=== PATIENT | male | born 1995 | race Caucasian/White ===

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

== ENCOUNTER 2018-11-25 16:55 | Emergency (ER) | payer OTHER ==
[2018-11-25] MEDS ORDERED: DEXAMETHASONE 10 MG/ML VIAL IVP ONE (17:16)
[2018-11-25] MEDS ORDERED: NS 1,000 ML IV ONE ×2 (17:16→18:05)
[2018-11-25] MEDS ORDERED: KETOROLAC 30 MG/1 ML SDV IVP ONE (17:17)
--- NOTE | 2018-11-25 18:06 | EDPHY ---
H & P Stated Complaint: Dx with ST today,took 1 dose Penvk throat feels swollen Time Seen by Provider: 11/25/18 17:07 HPI/ROS: 23-year-old male presents complaining of sore throat and throat swelling. He was diagnosed with strep throat today and started on penicillin VK after taking a nap he woke up and felt like his throat may be more more swollen with difficulty breathing and was concerned he might be having allergic reaction to the penicillin. Review of systems As per HPI General positive fever positive chills no weakness HEENT no eye pain no eye discharge. No eye redness, positive sore throat Respiratory no cough, no shortness of breath Cardiac no chest pain, no peripheral edema GI no abdominal pain, no diarrhea, no constipation, no nausea, no vomiting no flank pain, no hematuria, no dysuria Musculoskeletal no myalgias, no joint pain Heme no easy bruising, no easy bleeding Endo no polyuria, no polydipsia Skin no rashes, no pruritus Neuro no syncope, no dizziness, no headaches Psych is no suicidal ideation, no homicidal ideation Source: Patient, Family Exam Limitations: No limitations - Personal History Current Tetanus Diphtheria and Acellular Pertussis (TDAP): Unsure - Medical/Surgical History Hx Asthma: No Hx Chronic Respiratory Disease: No Hx Diabetes: No Hx Cardiac Disease: No Hx Renal Disease: No Hx Cirrhosis: No Hx Alcoholism: No Hx HIV/AIDS: No Hx Splenectomy or Spleen Trauma: No Other PMH: med hx- none. surg-none - Family History Significant Family History: No pertinent family hx - Social History Smoking Status: Never smoked Alcohol Use: None Drug Use: None - Physical Exam Exam: 23-year-old male Alert and oriented in no acute distress nontoxic appearance, afebrile Atraumatic normocephalic Extraocular muscles intact, anicteric Neck-supple, positive anterior cervical lymphadenopathy mildly tender to palpation Oropharynx positive enlarged tonsils, erythematous, no uvular deviation, positive purulent exudate, tolerating own secretions, no trismus Lungs clear to auscultation bilaterally Heart regular rate and rhythm Abdomen normoactive bowel sounds soft nontender Extremities no cyanosis clubbing edema Skin no rash Constitutional: Initial Vital Signs Temperature (C) 38.5 C H 11/25/18 17:07 Heart Rate 112 H 11/25/18 17:07 Respiratory Rate 16 11/25/18 17:07 Blood Pressure 106/53 L 11/25/18 17:07 O2 Sat (%) 98 11/25/18 17:07 O2 Delivery Mode Room Air Allergies/Adverse Reactions: No Known Allergies Allergy (Verified 11/25/18 17:05) Home Medications: Medication Instructions Recorded Penicillin VK 11/25/18 Medical Decision Making ED Course/Re-evaluation: Patient seen and evaluated for sore throat, diagnosed with streptococcal pharyngitis earlier today. IV established, labs drawn Normal saline 2 L given Decadron 10 mg IV push Toradol 30 mg IV push CBC elevated white count 18 Lactate normal BMP no acidosis Patient continues with low-grade fever given acetaminophen 1 g p.o. Initially the family was concerned that he might be having an allergic reaction to penicillin VK because after a nap he felt like his throat was swollen. There are no signs on physical exam for allergic reaction, yes he has throat swelling but throat selling consistent with a streptococcal infection, no uvular edema, no tongue swelling no lip swelling no wheezing and no skin rash. Also there were no signs of uvular deviation-no signs of a peritonsillar abscess Impression Severe strep pharyngitis Plan Discharge home Recommend rest, acetaminophen every 4-6 hours for fever ibuprofen every 6 hr for pain Return if swelling is worsening Differential Diagnosis: Differential diagnosis considered but not limited to: Pharyngitis, streptococcal pharyngitis, mononucleosis, peritonsillar abscess, allergic reaction - Data Points Laboratory Results: 11/25/18 11/25/18 17:37 17:34 POC Sodium 139 mEq/L mEq/L (135-145) POC Potassium 4.0 mEq/L mEq/L (3.3-5.0) POC Chloride 102.0 mEq/L mEq/L (97-110) POC Total CO2 26 mEq/L mEq/L (22-31) POC BUN 13 mg/dL mg/dL (7-23) POC Creatinine 1.1 mg/dL mg/dL (0.7-1.3) POC Glucose 101 mg/dL H mg/dL (70-100) POC Lactic Acid Agustin 1.7 mmol/L mmol/L (0.7-2.1) POC Calcium 9.9 mg/dL mg/dL (8.5-10.4) Medications Given: Discontinued Medications Acetaminophen (Tylenol 160mg/5ml Oral Liquid) 1,000 mg PO EDNOW ONE Stop: 11/25/18 18:38 Last Admin: 11/25/18 19:02 Dose: Not Given Acetaminophen (Tylenol) 1,000 mg PO EDNOW ONE Stop: 11/25/18 19:01 Last Admin: 11/25/18 19:02 Dose: 1,000 mg Dexamethasone (Decadron Injection) 10 mg IVP EDNOW ONE Stop: 11/25/18 17:17 Last Admin: 11/25/18 17:38 Dose: 10 mg Sodium Chloride (Ns) 1,000 mls @ 0 mls/hr IV ONCE ONE PRN Reason: Wide Open Stop: 11/25/18 17:17 Last Admin: 11/25/18 17:31 Dose: 1,000 mls Sodium Chloride (Ns) 1,000 mls @ 0 mls/hr IV ONCE ONE PRN Reason: Wide Open Stop: 11/25/18 18:06 Last Admin: 11/25/18 18:32 Dose: 1,000 mls Ketorolac Tromethamine (Toradol) 30 mg IVP EDNOW ONE Stop: 11/25/18 17:18 Last Admin: 11/25/18 17:35 Dose: 30 mg Point of Care Test Results: CBC CBC Collection Date 11/25/18 CBC Collection Time 17:30 WBC 18.30 RBC 5.25 HGB 16.6 HCT 47.0 PLT 105 Neut # 15.51 Neut 84.8 LYMPH # 1.29 LYMPH 7.0 MCV 89.5 Chemistry 11/25/18 17:37 POC Sodium 139 mEq/L mEq/L (135-145) POC Potassium 4.0 mEq/L mEq/L (3.3-5.0) POC Chloride 102.0 mEq/L mEq/L (97-110) POC Total CO2 26 mEq/L mEq/L (22-31) POC BUN 13 mg/dL mg/dL (7-23) POC Creatinine 1.1 mg/dL mg/dL (0.7-1.3) POC Glucose 101 mg/dL H mg/dL (70-100) POC Calcium 9.9 mg/dL mg/dL (8.5-10.4) Blood Gas/Lactic Acid-Venous 11/25/18 17:34 POC Lactic Acid Agustin 1.7 mmol/L mmol/L (0.7-2.1) Departure - Departure Disposition: Home, Routine, Self-Care Clinical Impression: Acute streptococcal pharyngitis Condition: Good Instructions: Strep Throat (ED) Referrals: Richard Lopez DO [Primary Care Provider] - As per Instructions Stand Alone Forms: School Excuse, Work Excuse
[2018-11-25] MEDS ORDERED: ACETAMINOPHEN 160 MG/5 ML UDCUP PO ONE (18:37)
[2018-11-25] MEDS ORDERED: ACETAMINOPHEN 500 MG TAB ONE (18:55)
[2018-11-25] MEDS ORDERED: ACETAMINOPHEN 500 MG TAB PO ONE (19:00)
[2018-11-25 19:15] VITALS: BP 106/53
== END 2018-11-25 19:26 | disposition home or self-care (01) ==
LOC: CED 16:55
DX: J02.0 Streptococcal pharyngitis (principal); E86.9 Volume depletion, unspecified; Z79.2 Long term (current) use of antibiotics
CPT/HCPCS: 80048-ER; 83605-ER; 96361-ER; 96374-ER; 96375-ER; 99284-ER; J1100; J1885